=== PATIENT | female | born 1965 | race Caucasian/White ===

== ENCOUNTER → 2018-06-13 | Outpatient (CLI) | payer BC ==
--- NOTE | 2018-06-17 09:10 | MM ---
Reason for exam: screening (asymptomatic). Last mammogram was performed 4 years and 6 months ago. History: Patient is postmenopausal. Physical Findings: A clinical breast exam by your physician is recommended on an annual basis and results should be correlated with mammographic findings. MG 3D Screening Mammo W/Cad Bilateral CC and MLO view(s) were taken. Prior study comparison: December 02, 2013, bilateral digital screening mammo w/CAD. July 20, 2011, bilateral digital screening mammo w/CAD. There are scattered fibroglandular densities. There is chronic nodularity in the left breast. No significant changes when compared with prior studies. ASSESSMENT: Negative, BI-RAD 1 RECOMMENDATION: Routine screening mammogram of both breasts in 1 year.
== END ==
LOC: RADMAMWWP 10:49
PROVIDERS: ATTEND Family Medicine
DX: Z12.31 Encounter for screening mammogram for malignant neoplasm of breast (principal)
CPT/HCPCS: 77063; 77067

== ENCOUNTER → 2021-06-26 | Outpatient (CLI) | payer BC ==
--- NOTE | 2021-06-26 13:57 | MM ---
Reason for exam: screening (asymptomatic). Last mammogram was performed 3 years ago. History: Patient is postmenopausal. Physical Findings: A clinical breast exam by your physician is recommended on an annual basis and results should be correlated with mammographic findings. MG 3D Screening Mammo W/Cad Bilateral CC and MLO view(s) were taken. Prior study comparison: June 13, 2018, bilateral MG 3d screening mammo w/cad. December 02, 2013, bilateral digital screening mammo w/CAD. There are scattered fibroglandular densities. There are benign appearing round calcifications bilaterally. There is a tiny chronic nodularity in the left breast. There is no discrete abnormality. ASSESSMENT: Benign, BI-RAD 2 RECOMMENDATION: Routine screening mammogram of both breasts in 1 year.
== END | disposition home or self-care (01) ==
LOC: RADMAMWWP 07:27
PROVIDERS: ATTEND Family Medicine
DX: Z12.31 Encounter for screening mammogram for malignant neoplasm of breast (principal); Z78.0 Asymptomatic menopausal state
CPT/HCPCS: 77063; 77067

== ENCOUNTER 2021-10-20 12:25 | Observation (INO) | payer BC ==
[2021-10-20] MEDS ORDERED: SODIUM CHLORIDE 0.9% 1,000 ML IV ONE ×2 (13:37→23:24)
[2021-10-20 14:27] LABS: Basophils % (A) 0 %; Eosinophils % (A) 0 %; HCT 40.9 % (34.0-46.0); Lymphocytes % (A) 10 %; MCH 28.2 pg (25.0-35.0); MCHC 31.8 g/dL (31.0-37.0); MCV 88.6 fL (80.0-100.0); Monocytes # (A) 0.5 k/uL (0-1.0); Monocytes % (A) 6 %; Neutrophils # (A) 8.1 k/uL (1.3-7.7); Neutrophils % (A) 83 %; Platelet Count 332 k/uL (150-450); RBC 4.62 m/uL (3.80-5.40); RDW 12.7 % (11.5-15.5); WBC 9.7 k/uL (3.8-10.6)
--- NOTE | 2021-10-20 14:31 | CT ---
EXAMINATION TYPE: CT abdomen pelvis w con DATE OF EXAM: 10/20/2021 COMPARISON: 10/22/2013 HISTORY: Mid abdominal pain, nausea and chills. CT DLP: 989.2 mGycm CONTRAST: CT scan of the abdomen and pelvis is performed without Oral Contrast and with IV Contrast, patient in jected with 100 mL of Isovue 300. FINDINGS: LUNG BASES-: No visible nodule. No infiltrate. LIVER/GB: Cholelithiasis. No space occupying hepatic lesion. Biliary tree is of normal caliber. PANCREAS: No inflammation. No distinct mass. SPLEEN: No splenic enlargement. No lesion seen. ADRENALS: No nodule. No thickening. KIDNEYS/BLADDER: No hydronephrosis. No nephrolithiasis. No distinct renal mass. Urinary bladder g rossly unremarkable. BOWEL: Normal appendix. Normal bowel caliber. No inflammation. GENITAL ORGANS: No gross abnormality. LYMPH NODES: No greater than 1cm abdominal or pelvic lymph nodes are appreciated. AORTA: No significant abnormality. OSSEOUS STRUCTURES: No significant abnormality is seen. OTHER: No significant additional abnormality is seen. IMPRESSION: 1. Cholelithiasis with a gallstone within the gallbladder neck. No definite wall thickening or perich olecystic fluid at this time.
[2021-10-20 14:44] LABS: ALT 87 U/L (4-34); AST 279 U/L (14-36); African American GFR (CKD) >90 (>60 ml/min/1.73 sqM); Albumin 4.2 g/dL (3.5-5.0); Alkaline Phosphatase 92 U/L (38-126); Anion Gap 6 mmol/L; Blood Urea Nitrogen 16 mg/dL (7-17); Calcium 9.6 mg/dL (8.4-10.2); Carbon Dioxide 31 mmol/L (22-30); Chloride 101 mmol/L (98-107); Glucose 131 mg/dL (74-99); Lipase 139 U/L (23-300); Non-African American GFR(CKD) 82 (>60 ml/min/1.73 sqM); Potassium 4.5 mmol/L (3.5-5.1); Sodium 138 mmol/L (137-145); Total Bilirubin 0.6 mg/dL (0.2-1.3); Total Protein 7.2 g/dL (6.3-8.2)
[2021-10-20 14:53] LABS: Appearance,Urine Slightly Cloudy (Clear); Color,Urine Yellow; Specific Gravity,Urine 1.015 (1.001-1.035)
[2021-10-20 14:54] LABS: Bilirubin,Urine Negative (Negative); Blood,Urine Negative (Negative); Glucose,Urine (UA) Negative (Negative); Ketones,Urine Negative (Negative); Leukocyte Esterase,Urine Moderate (Negative); Nitrite,Urine Negative (Negative); PH, Urine 7.5 (5.0-8.0); Protein,Urine Trace (Negative); Urobilinogen,Urine <2.0 mg/dL (<2.0)
[2021-10-20 14:56] LABS: Bacteria,Urine Occasional /hpf; Squamous Epithelial Cell,Urine 6 /hpf (0-4); WBC,Urine 2 /hpf (0-5)
--- NOTE | 2021-10-20 15:11 | ED ---
Abdominal Pain HPI - General Chief Complaint: Abdominal Pain Stated Complaint: Abdominal Pain,Chills, Time Seen by Provider: 10/20/21 12:35 Source: patient Mode of arrival: ambulatory Limitations: no limitations - History of Present Illness Initial Comments: 56-year-old female with no reported past medical history presents emergency department with right lower quadrant abdominal pain. 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 States the pain was cramping and severe but then resolved shortly afterwards. She had associated nausea without vomiting. Also admits to chills. She was able to walk around for a bed and then the pain returned. She was concerned for appendicitis. Patient's has not had any abdominal surgeries. Denies any changes in her urination to include dysuria, hematuria or difficulty voiding. Denies changes in her bowel habits to include diarrhea, constipation, melenic stools or hematochezia. No issues with vaginal bleeding or discharge. No other alleviating, precipitating modifying factors - Related Data Home Medications Medication Instructions Recorded Confirmed Calcium Carbonate/Vitamin D3 1 tab PO DAILY 10/20/21 10/20/21 [Calcium 500 mg-Vit D3 5 mcg (200 Unit)] Cholecalciferol [Vitamin D3 (125 125 mcg PO DAILY 10/20/21 10/20/21 Mcg = 5000 Iu)] amLODIPine BES/OLMESARTAN MED 1 tab PO DAILY 10/20/21 10/20/21 [amLODIPine BES/OLMESARTAN MED 5-20 mg] Previous Rx's Medication Instructions Recorded Acetaminophen Tab [Tylenol] 650 mg PO Q6HR PRN tab 10/21/21 Allergies Allergy/AdvReac Type Severity Reaction Status Date / Time naproxen AdvReac Rash/Hives Verified 10/20/21 15:35 Review of Systems ROS Statement: Those systems with pertinent positive or pertinent negative responses have been documented in the HPI. ROS Other: All systems not noted in ROS Statement are negative. Past Medical History Past Medical History: No Reported History History of Any Multi-Drug Resistant Organisms: None Reported Past Surgical History: Orthopedic Surgery Past Psychological History: No Psychological Hx Reported Smoking Status: Never smoker Past Alcohol Use History: None Reported Past Drug Use History: None Reported - Past Family History Mother Family Medical History: No Reported History General Exam Limitations: no limitations General appearance: alert, in no apparent distress Head exam: Present: atraumatic, normocephalic, normal inspection Eye exam: Present: normal appearance, PERRL, EOMI. Absent: scleral icterus, conjunctival injection, periorbital swelling ENT exam: Present: normal exam, mucous membranes moist Neck exam: Present: normal inspection. Absent: tenderness, meningismus, lymphadenopathy Respiratory exam: Present: normal lung sounds bilaterally. Absent: respiratory distress, wheezes, rales, rhonchi, stridor Cardiovascular Exam: Present: regular rate, normal rhythm, normal heart sounds. Absent: systolic murmur, diastolic murmur, rubs, gallop, clicks GI/Abdominal exam: Present: soft, tenderness (right upper and right lower quadrants), normal bowel sounds. Absent: distended, guarding, rebound, rigid Extremities exam: Present: normal inspection, full ROM, normal capillary refill. Absent: tenderness, pedal edema, joint swelling, calf tenderness Back exam: Present: normal inspection Neurological exam: Present: alert, oriented X3, CN II-XII intact Psychiatric exam: Present: normal affect, normal mood Skin exam: Present: warm, dry, intact, normal color. Absent: rash Course Vital Signs 10/20/21 10/20/21 12:32 15:24 Temperature 97.7 F Pulse Rate 86 83 Respiratory 18 20 Rate Blood Pressure 154/86 170/98 O2 Sat by Pulse 98 98 Oximetry Medical Decision Making - Medical Decision Making Upon arrival patient was placed into room 27. A thorough history and physical exam was performed. Patient was offered pain and nausea medications however refused. IV access established laboratory studies were conducted. Patient does have an elevated AST and ALTs. He the abdomen and pelvis was performed because of patient's abdominal pain and demonstrates acute cholelithiasis with a gallstone within the neck of the gallbladder. No definite wall thickening or pericholecystic fluid. Normal appendix. Results are discussed patient. Discussed results with Dr. Luciano. Recommended admission with antibiotics, pain medication and nausea medication. Patient admitted to the floor in stable condition - Lab Data Result diagrams: 10/21/21 07:17 10/21/21 07:17 Lab Results 10/20/21 10/20/21 10/20/21 Range/Units 13:14 13:56 13:56 WBC 9.7 (3.8-10.6) k/uL RBC 4.62 (3.80-5.40) m/uL Hgb 13.0 (11.4-16.0) gm/dL Hct 40.9 (34.0-46.0) % MCV 88.6 (80.0-100.0) fL MCH 28.2 (25.0-35.0) pg MCHC 31.8 (31.0-37.0) g/dL RDW 12.7 (11.5-15.5) % Plt Count 332 (150-450) k/uL MPV 7.0 Neutrophils % 83 % Lymphocytes % 10 % Monocytes % 6 % Eosinophils % 0 % Basophils % 0 % Neutrophils # 8.1 H (1.3-7.7) k/uL Lymphocytes # 1.0 (1.0-4.8) k/uL Monocytes # 0.5 (0-1.0) k/uL Eosinophils # 0.0 (0-0.7) k/uL Basophils # 0.0 (0-0.2) k/uL Sodium 138 (137-145) mmol/L Potassium 4.5 (3.5-5.1) mmol/L Chloride 101 (98-107) mmol/L Carbon Dioxide 31 H (22-30) mmol/L Anion Gap 6 mmol/L BUN 16 (7-17) mg/dL Creatinine 0.80 (0.52-1.04) mg/dL Est GFR (CKD-EPI)AfAm >90 (>60 ml/min/1.73 sqM) Est GFR (CKD-EPI)NonAf 82 (>60 ml/min/1.73 sqM) Glucose 131 H (74-99) mg/dL Plasma Lactic Acid Vinod (0.7-2.0) mmol/L Calcium 9.6 (8.4-10.2) mg/dL Total Bilirubin 0.6 (0.2-1.3) mg/dL AST 279 H (14-36) U/L ALT 87 H (4-34) U/L Alkaline Phosphatase 92 (38-126) U/L Total Protein 7.2 (6.3-8.2) g/dL Albumin 4.2 (3.5-5.0) g/dL Lipase 139 (23-300) U/L Urine Color Yellow Urine Appearance Slightly Cloudy H (Clear) Urine pH 7.5 (5.0-8.0) Ur Specific [place] 1.015 (1.001-1.035) Urine Protein Trace (Negative) Urine Glucose (UA) Negative (Negative) Urine Ketones Negative (Negative) Urine Blood Negative (Negative) Urine Nitrite Negative (Negative) Urine Bilirubin Negative (Negative) Urine Urobilinogen <2.0 (<2.0) mg/dL Ur Leukocyte Esterase Moderate (Negative) Urine WBC 2 (0-5) /hpf Ur Squamous Epith Cells 6 H (0-4) /hpf Urine Bacteria Occasional H (None) /hpf 10/20/21 Range/Units 13:56 WBC (3.8-10.6) k/uL RBC (3.80-5.40) m/uL Hgb (11.4-16.0) gm/dL Hct (34.0-46.0) % MCV (80.0-100.0) fL MCH (25.0-35.0) pg MCHC (31.0-37.0) g/dL RDW (11.5-15.5) % Plt Count (150-450) k/uL MPV Neutrophils % % Lymphocytes % % Monocytes % % Eosinophils % % Basophils % % Neutrophils # (1.3-7.7) k/uL Lymphocytes # (1.0-4.8) k/uL Monocytes # (0-1.0) k/uL Eosinophils # (0-0.7) k/uL Basophils # (0-0.2) k/uL Sodium (137-145) mmol/L Potassium (3.5-5.1) mmol/L Chloride (98-107) mmol/L Carbon Dioxide (22-30) mmol/L Anion Gap mmol/L BUN (7-17) mg/dL Creatinine (0.52-1.04) mg/dL Est GFR (CKD-EPI)AfAm (>60 ml/min/1.73 sqM) Est GFR (CKD-EPI)NonAf (>60 ml/min/1.73 sqM) Glucose (74-99) mg/dL Plasma Lactic Acid Vinod 1.3 (0.7-2.0) mmol/L Calcium (8.4-10.2) mg/dL Total Bilirubin (0.2-1.3) mg/dL AST (14-36) U/L ALT (4-34) U/L Alkaline Phosphatase (38-126) U/L Total Protein (6.3-8.2) g/dL Albumin (3.5-5.0) g/dL Lipase (23-300) U/L Urine Color Urine Appearance (Clear) Urine pH (5.0-8.0) Ur Specific [place] (1.001-1.035) Urine Protein (Negative) Urine Glucose (UA) (Negative) Urine Ketones (Negative) Urine Blood (Negative) Urine Nitrite (Negative) Urine Bilirubin (Negative) Urine Urobilinogen (<2.0) mg/dL Ur Leukocyte Esterase (Negative) Urine WBC (0-5) /hpf Ur Squamous Epith Cells (0-4) /hpf Urine Bacteria (None) /hpf Disposition Clinical Impression: Cholelithiasis, Elevated liver enzymes, Nausea Disposition: ADMITTED IP TO THIS [facility] Condition: Stable Is patient prescribed a controlled substance at d/c from ED?: No Decision to Admit Reason: Admit from EC Decision Date: 10/20/21 Decision Time: 15:13
[2021-10-20] MEDS ORDERED: ONDANSETRON 4 MG/2 ML VIAL IVP STA (15:12)
[2021-10-20] MEDS ORDERED: MORPHINE SULFATE 4 MG/ML SYRINGE IVP STA (15:12)
[2021-10-20] MEDS ORDERED: MORPHINE SULFATE 4 MG/ML SYRINGE IV PRN (15:14)
[2021-10-20] MEDS ORDERED: NALOXONE 0.4 MG/ML 1 ML VIAL IV PRN (15:14)
[2021-10-20] MEDS: SODIUM CHLORIDE 0.9% 1,000 ML IV SCH (17:18)
[2021-10-20] MEDS: PANTOPRAZOLE 40 MG/10 ML VIAL IV SCH (17:19)
[2021-10-20] MEDS ORDERED: LACTATED RINGERS 1,000 ML IV ONE (20:29)
[2021-10-20] MEDS ORDERED: HEPARIN SODIUM,PORCINE 5,000 UNIT/ML 1 ML VIAL SQ ONE (21:19)
--- NOTE | 2021-10-20 21:20 | P.GSHP ---
History of Present Illness H&P Date: 10/20/21 Chief Complaint: Right upper quadrant pain Is a 56-year-old female who presents to the emergency room with right quadrant pain. Patient worked up found have gallstones. Patient has a gallstone in the neck of her gallbladder. Past Medical History Past Medical History: No Reported History History of Any Multi-Drug Resistant Organisms: None Reported Past Surgical History: Orthopedic Surgery Additional Past Surgical History / Comment(s): knee Past Anesthesia/Blood Transfusion Reactions: No Reported Reaction Past Psychological History: No Psychological Hx Reported Smoking Status: Never smoker Past Alcohol Use History: None Reported Past Drug Use History: None Reported - Past Family History Mother Family Medical History: No Reported History Medications and Allergies Home Medications Medication Instructions Recorded Confirmed Type Calcium Carbonate/Vitamin D3 1 tab PO DAILY 10/20/21 10/20/21 History [Calcium 500 mg-Vit D3 5 mcg (200 Unit)] Cholecalciferol [Vitamin D3 (125 125 mcg PO DAILY 10/20/21 10/20/21 History Mcg = 5000 Iu)] amLODIPine BES/OLMESARTAN MED 1 tab PO DAILY 10/20/21 10/20/21 History [amLODIPine BES/OLMESARTAN MED 5-20 mg] Allergies Allergy/AdvReac Type Severity Reaction Status Date / Time naproxen AdvReac Rash/Hives Verified 10/20/21 15:35 Surgical - Exam Vital Signs Temp Pulse Resp BP Pulse Ox 97.7 F 86 18 154/86 98 10/20/21 12:32 10/20/21 12:32 10/20/21 12:32 10/20/21 12:32 10/20/21 12:32 - General well developed, well nourished, no distress - Eyes PERRL - ENT normal pinna - Neck no masses - Respiratory normal expansion - Cardiovascular Rhythm: regular - Abdomen Abdomen: soft, non tender Results - Labs 10/20/21 13:56 10/20/21 13:56 Abnormal Lab Results - Last 24 Hours (Table) 10/20/21 10/20/21 10/20/21 Range/Units 13:14 13:56 13:56 Neutrophils # 8.1 H (1.3-7.7) k/uL Carbon Dioxide 31 H (22-30) mmol/L Glucose 131 H (74-99) mg/dL AST 279 H (14-36) U/L ALT 87 H (4-34) U/L Urine Appearance Slightly Cloudy H (Clear) Ur Squamous Epith Cells 6 H (0-4) /hpf Urine Bacteria Occasional H (None) /hpf Diabetes panel 10/20/21 Range/Units 13:56 Sodium 138 (137-145) mmol/L Potassium 4.5 (3.5-5.1) mmol/L Chloride 101 (98-107) mmol/L Carbon Dioxide 31 H (22-30) mmol/L BUN 16 (7-17) mg/dL Creatinine 0.80 (0.52-1.04) mg/dL Glucose 131 H (74-99) mg/dL Calcium 9.6 (8.4-10.2) mg/dL AST 279 H (14-36) U/L ALT 87 H (4-34) U/L Alkaline Phosphatase 92 (38-126) U/L Total Protein 7.2 (6.3-8.2) g/dL Albumin 4.2 (3.5-5.0) g/dL Calcium panel 10/20/21 Range/Units 13:56 Calcium 9.6 (8.4-10.2) mg/dL Albumin 4.2 (3.5-5.0) g/dL Pituitary panel 10/20/21 Range/Units 13:56 Sodium 138 (137-145) mmol/L Potassium 4.5 (3.5-5.1) mmol/L Chloride 101 (98-107) mmol/L Carbon Dioxide 31 H (22-30) mmol/L BUN 16 (7-17) mg/dL Creatinine 0.80 (0.52-1.04) mg/dL Glucose 131 H (74-99) mg/dL Calcium 9.6 (8.4-10.2) mg/dL Adrenal panel 10/20/21 Range/Units 13:56 Sodium 138 (137-145) mmol/L Potassium 4.5 (3.5-5.1) mmol/L Chloride 101 (98-107) mmol/L Carbon Dioxide 31 H (22-30) mmol/L BUN 16 (7-17) mg/dL Creatinine 0.80 (0.52-1.04) mg/dL Glucose 131 H (74-99) mg/dL Calcium 9.6 (8.4-10.2) mg/dL Total Bilirubin 0.6 (0.2-1.3) mg/dL AST 279 H (14-36) U/L ALT 87 H (4-34) U/L Alkaline Phosphatase 92 (38-126) U/L Total Protein 7.2 (6.3-8.2) g/dL Albumin 4.2 (3.5-5.0) g/dL Assessment and Plan Assessment: Cholecystitis, cholelithiasis. We'll perform laparoscopic cholecystectomy
[2021-10-20] MEDS ORDERED: PROPOFOL 10 MG/ML 20 ML VIAL IV ONE (21:40)
[2021-10-20] MEDS ORDERED: fentaNYL (PF) 50 MCG/ML 2 ML AMP ONE (21:40)
[2021-10-20] MEDS ORDERED: HYDROmorphone (PF) 1 MG/ML ONE (21:40)
[2021-10-20] MEDS ORDERED: KETOROLAC 15 MG/ML 1 ML VIAL ONE (21:40)
[2021-10-20] MEDS ORDERED: GLYCOPYRROLATE 0.2 MG/ML 2 ML VIAL ONE (21:40)
[2021-10-20] MEDS ORDERED: SUCCINYLCHOLINE CHLORIDE 100 MG/5 ML SYR IV ONE (21:40)
[2021-10-20] MEDS ORDERED: NEOSTIGMINE 1 MG/ML 10 ML VIAL ONE (21:40)
[2021-10-20] MEDS ORDERED: LIDOCAINE 1% INJ 10MG/ML (20 ML MDV) ONE (21:40)
[2021-10-20] MEDS ORDERED: ROCURONIUM 10 MG/ML (5 ML VIAL) IV ONE (21:40)
[2021-10-20] MEDS ORDERED: MIDAZOLAM 2 MG/2 ML VIAL ONE (21:40)
[2021-10-20] MEDS ORDERED: SODIUM CHLORIDE 0.9% 100 ML with ceFAZolin 2 GM IV ONE ×2 (21:42)
[2021-10-20] MEDS ORDERED: BUPIVACAINE-EPI 0.5%-1:200,000 10 ML VIAL SQ ONE (21:55)
[2021-10-20] MEDS ORDERED: HYDROcodone/APAP 7.5-325MG 1 EACH TAB PO PRN (22:14)
[2021-10-20] MEDS ORDERED: HYDROmorphone 1 MG/ML 1 ML SYRINGE IVP PRN (22:14)
--- NOTE | 2021-10-20 22:14 | P.OP ---
Date of Procedure: 10/20/21 Preoperative Diagnosis: Cholecystitis Postoperative Diagnosis: Cholecystitis Procedure(s) Performed: Laparoscopic cholecystectomy Anesthesia: YUDY Surgeon: Ronal Luciano Estimated Blood Loss (ml): 5 Pathology: other (Gallbladder) Condition: stable Disposition: PACU Description of Procedure: The patient was placed on the operating table. The patient received a general endotracheal tube anesthesia. The patients abdomen was prepped and draped in the usual sterile fashion. Through an infraumbilical stab incision, the fascia of the anterior abdominal wall was grasped with a pair of Kochers and then the Veress needle was placed in the peritoneal cavity. Position of the Veress needle was confirmed with positive drop test. The abdomen was then insufflated. After adequate insufflation, the 10 mm trocar was placed in the peritoneal cavity. Following this the laparoscope was placed in the peritoneal cavity. The patient was placed in the head-up, right side up position and then a 5 mm trocar was placed in the right lateral and right subcostal position under direct visualization. A 8 mm trocar was placed in the epigastric position. The gallbladder was grasped in the fundus and infundibulum. Traction on the gallbladder was placed in the lateral and the cephalad positions. The triangle of Calot was visualized.. The cystic duct was bluntly dissected until the union of the cystic duct and common bile duct was seen. A critical view of safety was achieved. The cystic duct was then divided and sealed with the Harmonic scissors. A PDS Endoloop was then placed throughout the cystic duct stump. The cystic artery divided and sealed with the Harmonic scissors. The gallbladder was then removed from the liver bed using Harmonic scissors. The gallbladder was then extracted through the epigastric port site. Operative field was checked for any bleeding spots and Harmonic scissors was used to coagulate the liver bed. The abdomen was irrigated. The trocars were removed. The skin was closed using interrupted 3-0 Vicryl suture. Dermabond dressing were applied. The patient tolerated the procedure well.
[2021-10-20] MEDS ORDERED: HYDROmorphone 0.5 MG/0.5 ML SYRINGE IVP ONE (23:15)
[2021-10-20] MEDS: ONDANSETRON 4 MG/2 ML VIAL IVP PRN (23:47)
[2021-10-21] MEDS: SODIUM CHLORIDE 0.9% 1,000 ML IV SCH ×4 (00:10→23:26)
[2021-10-21] MEDS: ACETAMINOPHEN TAB 325 MG TAB PO PRN (05:14)
[2021-10-21] MEDS: PANTOPRAZOLE 40 MG/10 ML VIAL IV SCH (07:48)
[2021-10-21] MEDS: ONDANSETRON 4 MG/2 ML VIAL IVP PRN (07:48)
[2021-10-21] MEDS: ENOXAPARIN 40 MG/0.4 ML SYRINGE SQ SCH (07:48)
--- NOTE | 2021-10-21 11:20 | P.PN ---
Progress Note - Text Progress Note Date: 10/21/21 Patient is 12 hours postoperative laparoscopically cystectomy. She still has complaints of incisional pain. She does not feel ready to go home. On exam vital signs are stable. Abdomen soft. Status post laparoscopically cholecystectomy for acute closure status. Patient will continue receive supportive care. His be discharged home tomorrow.
--- NOTE | 2021-10-21 11:31 | P.CONS ---
History of Present Illness - Reason for Consult Consult date: 10/21/21 - Chief Complaint Medical management - History of Present Illness 56-year-old woman with obesity class I, hypertension presented for nausea, vomiting, abdominal pain. Patient was found to have cholelithiasis and was taken to the operating room last night by surgery. Surgery consulted medicine f or medical management. Patient's has stable chronic medical conditions. Patient has no complaints at this time. Patient does report an appetite, would like to try diet. Patient has been passing gas. She denies fevers, chills, chest pain, palpitations, cough, dyspnea, syncope, presyncope, constipation, diarrhea, dysuria, melena, hematochezia, numbness/weakness of extremities. She did report an episode of emesis this morning, but did not feel nauseous the time of my exam. Patient is afebrile, 123/77, heart rate 68, 96% on room air. CBC from admission is unremarkable. Chemistries from admission show alkalosis with bicarbonate 31, otherwise has elevated liver enzymes of 279, 87 of AST, ALT respectively. Lipase is 139. UA was dirty. HCG was negative. Her computed tomography scan of her abdomen/pelvis as noted in demonstrate cholelithiasis with a gallstone within the gallbladder neck, and without definite wall thickening. All Systems reviewed and pertinent positives and negatives noted in HPI, all other symptoms are negative Gen: awake, alert HEENT: normocephalic, atraumatic, good hearing acuity, moist mucous membranes Resp: good air exchange, breathing comfortably with no accessory muscle use CVS: good distal perfusion x 4, GI: soft, NTTP, ND : no SPT, no CVAT, lisa catheter not present MSK: no pitting edema, no clubbing Neuro: non-focal, moving all extremities Psych: cooperative, euthymic mood Labs and imaging were reviewed as above Assessment/plan: Hypertension -Okay to resume her home blood pressure medication Cholelithiasis -Management per primary team Patient is a full code Thank you for this consult. A member of her team is available 11/03, please reach out to us via perfect serve or any questions or concerns arise. Medically, patient is stable for discharge, medication reconciliation will be addressed. Past Medical History Past Medical History: No Reported History History of Any Multi-Drug Resistant Organisms: None Reported Past Surgical History: Orthopedic Surgery Additional Past Surgical History / Comment(s): knee Past Anesthesia/Blood Transfusion Reactions: No Reported Reaction Past Psychological History: No Psychological Hx Reported Smoking Status: Never smoker Past Alcohol Use History: None Reported Past Drug Use History: None Reported - Past Family History Mother Family Medical History: No Reported History Medications and Allergies Home Medications Medication Instructions Recorded Confirmed Type Calcium Carbonate/Vitamin D3 1 tab PO DAILY 10/20/21 10/20/21 History [Calcium 500 mg-Vit D3 5 mcg (200 Unit)] Cholecalciferol [Vitamin D3 (125 125 mcg PO DAILY 10/20/21 10/20/21 History Mcg = 5000 Iu)] amLODIPine BES/OLMESARTAN MED 1 tab PO DAILY 10/20/21 10/20/21 History [amLODIPine BES/OLMESARTAN MED 5-20 mg] Acetaminophen Tab [Tylenol] 650 mg PO Q6HR PRN tab 10/21/21 Rx Allergies Allergy/AdvReac Type Severity Reaction Status Date / Time naproxen AdvReac Rash/Hives Verified 10/20/21 15:35 Physical Exam Osteopathic Statement: *. No significant issues noted on an osteopathic structural exam other than those noted in the History and Physical/Consult. Vitals: Vital Signs Temp Pulse Pulse Pulse Pulse Resp BP 10/21/21 07:00 97.2 F L 68 17 10/21/21 01:56 69 16 10/21/21 01:40 97.5 F L 60 15 10/20/21 23:43 97.9 F 89 14 10/20/21 23:15 69 16 10/20/21 23:00 64 16 10/20/21 22:46 65 16 10/20/21 22:26 96.9 F L 85 12 10/20/21 19:03 98.4 F 68 18 10/20/21 16:16 98.4 F 68 18 10/20/21 15:24 83 20 170/98 10/20/21 12:32 97.7 F 86 18 154/86 BP BP Pulse Ox 10/21/21 07:00 123/77 96 10/21/21 01:56 10/21/21 01:40 118/69 99 10/20/21 23:43 150/87 94 L 10/20/21 23:15 151/74 99 10/20/21 23:00 155/72 99 10/20/21 22:46 133/68 100 10/20/21 22:26 140/72 98 10/20/21 19:03 157/83 98 10/20/21 16:16 157/83 98 10/20/21 15:24 98 10/20/21 12:32 98 Intake and Output 10/20/21 10/21/21 10/21/21 22:59 06:59 14:59 Intake Total 800 100 Output Total 10 Balance 790 100 Intake: IV 800 100 Output: Estimated Blood Loss 10 Other: Voiding Method Toilet # Voids 2 Weight 77.111 kg Results CBC & Chem 7: 10/20/21 13:56 10/20/21 13:56 Labs: Abnormal Lab Results - Last 24 Hours (Table) 10/20/21 10/20/21 10/20/21 Range/Units 13:14 13:56 13:56 Neutrophils # 8.1 H (1.3-7.7) k/uL Carbon Dioxide 31 H (22-30) mmol/L Glucose 131 H (74-99) mg/dL AST 279 H (14-36) U/L ALT 87 H (4-34) U/L Urine Appearance Slightly Cloudy H (Clear) Ur Squamous Epith Cells 6 H (0-4) /hpf Urine Bacteria Occasional H (None) /hpf
[2021-10-21 11:53] LABS: African American GFR (CKD) 94.9 (60.0-200.0); Albumin/Globulin Ratio 1.9 (1.60-3.17); Anion Gap 10.6 mmol/L (10.00-18.00); BUN/Creat Ratio 13.75 Ratio (12.00-20.00); Calcium 8.8 mg/dL (8.7-10.3); Carbon Dioxide 24.4 mmol/L (20.0-27.5); Globulin 2.1 g/dL (1.6-3.3); Non-African American GFR(CKD) 81.8 (60.0-200.0); Potassium 4.7 mmol/L (3.5-5.5); Total Bilirubin 0.4 mg/dL (0.30-1.20); Total Protein 6.1 g/dL (6.2-8.2)
[2021-10-21 11:57] LABS: Basophils # (A) 0.06 X 10*3/uL (0.00-0.10); Basophils % (A) 0.7 %; Eosinophils # (A) 0.01 X 10*3/uL (0.04-0.35); Eosinophils % (A) 0.1 %; HCT 36.8 % (37.2-46.3); Immature Grans, Automated 0.4 %; Lymphocytes # (A) 1.33 X 10*3/uL (0.90-5.00); Lymphocytes % (A) 16.1 %; MCH 27.2 pg (27.0-32.0); MCHC 29.9 g/dL (32.0-37.0); MCV 91.1 fL (80.0-97.0); Mean Platelet Volume 9.9 fL (9.5-12.2); Monocytes # (A) 0.63 X 10*3/uL (0.20-1.00); Monocytes % (A) 7.6 %; NRBC Per 100 WBC 0 /100 WBCS (0.0-0.0); Neutrophils # (A) 6.21 X 10*3/uL (1.80-7.70); Neutrophils % (A) 75.1 %; Platelet Count 322 X 10*3/uL (140-440); RBC 4.04 X 10*6/uL (4.10-5.20); RDW 13.2 % (11.5-14.5); WBC 8.27 X 10*3/uL (4.50-10.00)
[2021-10-21] MEDS: METOCLOPRAMIDE 5 MG/ML 2 ML VIAL IVP SCH ×2 (12:05→17:44)
[2021-10-22] MEDS: METOCLOPRAMIDE 5 MG/ML 2 ML VIAL IVP SCH ×2 (00:20→05:19)
[2021-10-22] MEDS: ACETAMINOPHEN TAB 325 MG TAB PO PRN (00:23)
[2021-10-22 07:35] VITALS: BP 145/89; PULSE 77; RESP 16; TEMP 98.3
[2021-10-22] MEDS: SODIUM CHLORIDE 0.9% 1,000 ML IV SCH (08:21)
[2021-10-22] MEDS: PANTOPRAZOLE 40 MG/10 ML VIAL IV SCH (08:21)
[2021-10-22] MEDS: ENOXAPARIN 40 MG/0.4 ML SYRINGE SQ SCH (08:21)
[2021-10-22] MEDS ORDERED: CALCIUM CARB-VIT D 500 MG-5 MCG TAB PO SCH (09:00)
[2021-10-22] MEDS ORDERED: LOSARTAN 50 MG TAB PO SCH (09:00)
[2021-10-22] MEDS ORDERED: CHOLECALCIFEROL 125 MCG (5000 IU) TABLET PO SCH (09:00)
[2021-10-22] MEDS ORDERED: amLODIPine 5 MG TAB PO SCH (09:00)
--- NOTE | 2021-10-22 11:34 | P.PN ---
Progress Note - Text Progress Note Date: 10/22/21 Patient feels much better this morning. On exam vital signs are stable. Abdomen soft. Incisions clean dry tach. Status post laparoscopic cholecystectomy. Patiently discharged home today.
--- NOTE | 2021-10-22 12:51 | P.PN ---
Subjective Progress Note Date: 10/22/21 Pt doing well today, no further complaints. Gen: awake, alert HEENT: normocephalic, atraumatic, good hearing acuity, moist mucous membranes Resp: good air exchange, breathing comfortably with no accessory muscle use CVS: good distal perfusion x 4, GI: soft, NTTP, ND : no SPT, no CVAT, lisa catheter not present MSK: no pitting edema, no clubbing Neuro: non-focal, moving all extremities Psych: cooperative, euthymic mood Assessment/plan: Hypertension -Okay to resume her home blood pressure medication Cholelithiasis -Management per primary team Patient is a full code Thank you for this consult. A member of her team is available 11/03, please reach out to us via perfect serve or any questions or concerns arise. Medically, patient is stable for discharge, medication reconciliation will be addressed. Objective - Vital Signs Vital signs: Vital Signs Temp 98.3 F 10/22/21 07:00 Pulse 77 10/22/21 07:00 Resp 16 10/22/21 07:00 BP 145/89 10/22/21 07:00 Pulse Ox 93 L 10/22/21 07:00 Intake & Output 10/21/21 10/22/21 10/22/21 18:59 06:59 18:59 Intake Total 118 Balance 118 Intake: Oral 118 Other: Voiding Method Toilet Toilet # Voids 3 2 # Bowel Movements 0 0 - Labs CBC & Chem 7: 10/21/21 07:17 10/21/21 07:17
== END 2021-10-22 13:20 | disposition home or self-care (01) ==
LOC: EC 12:25 → 6NMEDSUR 15:14
PROVIDERS: ADMIT Surgery; ATTEND Surgery
DX: K80.10 Calculus of gallbladder with chronic cholecystitis without obstruction (principal); I10 Essential (primary) hypertension; E66.9 Obesity, unspecified; Z68.33 Body mass index [BMI] 33.0-33.9, adult; Z79.899 Other long term (current) drug therapy; Z88.6 Allergy status to analgesic agent; Z98.890 Other specified postprocedural states
CPT/HCPCS: 96372; 96375 ×2; 96361; 96374; 99285; 36415; 88304; 80053 ×2; 83605; 83690; 85025 ×2; 81001; 81025; 74177; 47562; G0378 ×3; J2250; J2270; J1644; J2710; J2765 ×2; J0690; J2405 ×2; J2001; J1650; J3010; J1170 ×2; J1885; J0330; J2704; C9113 ×2; Q9967

== ENCOUNTER 2023-01-18 01:52 | Emergency (ER) | payer BC ==
[2023-01-18 02:02] VITALS: PULSE 81; RESP 18; TEMP 98
[2023-01-18] MEDS ORDERED: amLODIPine 5 MG TAB PO STA (02:13)
[2023-01-18 02:37] VITALS: BP 182/98
--- NOTE | 2023-01-18 02:37 | ED ---
Extremity Problem HPI - General Chief complaint: Extremity Problem,Nontraumatic Stated complaint: L leg pain Time Seen by Provider: 01/18/23 02:07 Source: patient Mode of arrival: ambulatory Limitations: no limitations - History of Present Illness Initial comments: 57-year-old female presenting with chief complaint of bilateral lower extremity swelling. Patient states that this has been ongoing for several weeks. She notes being out of her blood pressure medications for the last 1-2 weeks. She was seen at walk-in clinic earlier today and provided with a prescription for outpatient Doppler ultrasound. She denies any chest pain, difficulty breathing, fever, chills, nausea, vomiting, palpitations, weakness, numbness, tingling, dizziness, recent surgery, recent travel, hormone use, history of blood clots. - Related Data Home Medications Medication Instructions Recorded Confirmed Calcium Carbonate/Vitamin D3 1 tab PO DAILY 10/20/21 10/20/21 [Calcium 500 mg-Vit D3 5 mcg (200 Unit)] Cholecalciferol [Vitamin D3 (125 125 mcg PO DAILY 10/20/21 10/20/21 Mcg = 5000 Iu)] amLODIPine BES/OLMESARTAN MED 1 tab PO DAILY 10/20/21 10/20/21 [amLODIPine BES/OLMESARTAN MED 5-20 mg] Previous Rx's Medication Instructions Recorded Acetaminophen Tab [Tylenol] 650 mg PO Q6HR PRN tab 10/21/21 amLODIPine BES/OLMESARTAN MED 1 tab PO DAILY #30 tab 01/18/23 [amLODIPine BES/OLMESARTAN MED 5-20 mg] Allergies Allergy/AdvReac Type Severity Reaction Status Date / Time naproxen AdvReac Rash/Hives Verified 10/20/21 15:35 Review of Systems ROS Statement: Those systems with pertinent positive or pertinent negative responses have been documented in the HPI. ROS Other: All systems not noted in ROS Statement are negative. Past Medical History Past Medical History: Hypertension History of Any Multi-Drug Resistant Organisms: None Reported Past Surgical History: Cholecystectomy, Orthopedic Surgery Additional Past Surgical History / Comment(s): knee Past Anesthesia/Blood Transfusion Reactions: No Reported Reaction Past Psychological History: No Psychological Hx Reported Smoking Status: Never smoker Past Alcohol Use History: None Reported Past Drug Use History: None Reported - Past Family History Mother Family Medical History: No Reported History General Exam Limitations: no limitations General appearance: alert, in no apparent distress Head exam: Present: atraumatic, normocephalic, normal inspection Eye exam: Present: normal appearance, EOMI. Absent: scleral icterus, periorbital swelling Neck exam: Present: normal inspection, full ROM Respiratory exam: Present: normal lung sounds bilaterally. Absent: respiratory distress, wheezes, rales, rhonchi, stridor Cardiovascular Exam: Present: regular rate, normal rhythm, normal heart sounds. Absent: systolic murmur, diastolic murmur, rubs, gallop, clicks Extremities exam: Present: pedal edema Neurological exam: Present: alert, oriented X3, CN II-XII intact Psychiatric exam: Present: normal affect, normal mood Skin exam: Present: warm, dry, intact, normal color. Absent: rash Course Vital Signs 01/18/23 01/18/23 01:59 02:37 Temperature 98 F Pulse Rate 81 Respiratory 18 Rate Blood Pressure 195/113 182/98 O2 Sat by Pulse 98 Oximetry Medical Decision Making - Medical Decision Making Was pt. sent in by a medical professional or institution (SHAKIRA Ye, RETAIL MANAGER IN TRA[employer]ING, urgent care, hospital, or [facility]...) When possible be specific @ -No Did you speak to anyone other than the patient for history (EMS, parent, family, police, friend...)? What history was obtained from this source @ -No Did you review nursing and triage notes (agree or disagree)? Why? @ -I reviewed and agree with nursing and triage notes Were old charts reviewed (outside hosp., previous admission, EMS record, old EKG, old radiological studies, urgent care reports/EKG's, [facility] records)? Report findings @ -No old charts were reviewed Differential Diagnosis (chest pain, altered mental status, abdominal pain women, abdominal pain men, vaginal bleeding, weakness, fever, dyspnea, syncope, headache, dizziness, GI bleed, back pain, seizure, CVA, palpatations, mental health, musculoskeletal)? @ -Differential includes gravity dependent edema, hypertension, DVT, CHF, this is not an all inclusive list EKG interpreted by me (3pts min.). @ -As above X-rays interpreted by me (1pt min.). @ -None done CT interpreted by me (1pt min.). @ -None done U/S interpreted by me (1pt. min.). @ -None done What testing was considered but not performed or refused? (CT, X-rays, U/S, labs)? Why? @ -None What meds were considered but not given or refused? Why? @ -None Did you discuss the management of the patient with other professionals (professionals i.e. , PA, RETAIL MANAGER [employer] TRA[employer]ING, lab, RT, psych nurse, public health social worker, cemetery workers supervisor, teacher, community service patrol officer, wrapper caser)? Give summary @ -No Was smoking cessation discussed for >3mins.? @ -No Was critical care preformed (if so, how long)? @ -No Were there social determinants of health that impacted care today? How? (Homelessness, low income, unemployed, alcoholism, drug addiction, transportation, low edu. Level, literacy, decrease access to med. care, fpc, rehab)? @ -No Was there de-escalation of care discussed even if they declined (Discuss DNR or withdrawal of care, Hospice)? DNR status @ -No What co-morbidities impacted this encounter? (DM, HTN, Smoking, COPD, CAD, Cancer, CVA, ARF, Chemo, Hep., AIDS, mental health diagnosis, sleep apnea, m orbid obesity)? @ -None Was patient admitted / discharged? Hospital course, mention meds given and route, prescriptions, significant lab abnormalities, going to OR and other pertinent info. @ -57-year-old female presenting with chief complaint of bilateral lower extremity edema which has been ongoing for several weeks. Patient notes that s he has been out of her hypertension medication for one to 2 weeks. No chest pain or difficulty breathing. Vital signs are stable. No high risk features. No recent surgery, recent travel, history of blood clot, hormone use. Patient has a prescription for lower extremity Doppler ultrasound that she received today. Patient is instructed to continue with her outpatient ultrasound. She is provided with a refill for her hypertension medication. Instructed to follow-up with her PCP. Follow-up with PCP. Report back to ER with any new or worsening symptoms. Discussed return parameters and answered all questions. Patient conveyed verbal understanding and agreed to the plan. I discussed this case in detail with my attending Dr. Hirsch Undiagnosed new problem with uncertain prognosis? @ -No Drug Therapy requiring intensive monitoring for toxicity (Heparin, Nitro, Insulin, Cardizem)? @ -No Were any procedures done? @ -No Diagnosis/symptom? @ -Lower extremity edema Acute, or Chronic, or Acute on Chronic? @ -Acute Uncomplicated (without systemic symptoms) or Complicated (systemic symptoms)? @ -Uncomplicated Side effects of treatment? @ -No Exacerbation, Progression, or Severe Exacerbation? @ -No Poses a threat to life or bodily function? How? (Chest pain, USA, MS, pneumonia, PE, COPD, DKA, ARF, appy, cholecystitis, CVA, Diverticulitis, Homicidal, Suicidal, threat to staff... and all critical care pts) @ -No Disposition Clinical Impression: Hypertension, Edema Disposition: HOME SELF-CARE Condition: Good Instructions (If sedation given, give patient instructions): Leg Edema (ED), Hypertension (ED) Additional Instructions: Follow-up with PCP. Report back to ER with any new or worsening symptoms. Schedule your outpatient ultrasound as instructed. Prescriptions: amLODIPine BES/OLMESARTAN MED [amLODIPine BES/OLMESARTAN MED 5-20 mg] 1 tab PO DAILY #30 tab Is patient prescribed a controlled substance at d/c from ED?: No Referrals: Jose Mckay MD [Primary Care Provider] - 1-2 days Time of Disposition: 02:37
== END 2023-01-18 02:48 | disposition home or self-care (01) ==
LOC: EC 01:52
DX: I10 Essential (primary) hypertension (principal); R60.0 Localized edema; Z79.899 Other long term (current) drug therapy; Z88.8 Allergy status to other drugs, medicaments and biological substances
CPT/HCPCS: 99283

== ENCOUNTER → 2023-01-18 | Outpatient (CLI) | payer BC ==
--- NOTE | 2023-01-18 09:39 | US ---
EXAMINATION TYPE: US venous doppler duplex LE BI DATE OF EXAM: 01/18/2023 9:14 AM COMPARISON: NONE CLINICAL INDICATION: Female, 57 years old with history of R600 LOCALIZED EDEMA; LOCALIZED EDEMA BILAT ANKLES, UNEXPLAINED BRUISE ANTERIOR LEFT ANKLE SIDE PERFORMED: Bilateral TECHNIQUE: The lower extremity deep venous system is examined utilizing real time linear array sonog clair with graded compression, doppler sonography and color-flow sonography. VESSELS IMAGED: Common Femoral Vein Deep Femoral Vein Greater Saphenous Vein * Femoral Vein Popliteal Vein Proximal Calf Veins (* superficial vessels) Right Leg: Negative for DVT Left Leg: Negative for DVT BILATERAL POSTERIOR KNEE COMPLEX SEPTATED FLUID COLLECTIONS RT: 3.6X1.4X1.8CM LT: 5.4X1.5X2.1CM AREA OF CONCERN SCANNED AT ANTERIOR LT ANKLE: HYPOECHOIC AREA MEASURES 1.2X0.2X0.6CM Grayscale, color doppler, spectral doppler imaging performed of the deep veins of the bilateral lower extremities. There is normal flow, compressibility, vascular waveforms. IMPRESSION: No ultrasound evidence for acute DVT in either lower extremity. Small to moderate-sized septated popliteal cysts are felt present bilaterally. Tiny focal subcutaneous hematoma anterior left ankle region is felt present towards the end of the study.
== END | disposition home or self-care (01) ==
LOC: LABWHC1 08:21
PROVIDERS: ATTEND Registered Nurse General Practice
DX: R60.0 Localized edema (principal)
CPT/HCPCS: 93970

== ENCOUNTER → 2023-01-18 | Outpatient (CLI) | payer BC ==
[2023-01-18 16:24] LABS: Basophils # (A) 0.07 X 10*3/uL (0.00-0.10); Basophils % (A) 1.5 %; Eosinophils # (A) 0.05 X 10*3/uL (0.04-0.35); HCT 41.9 % (37.2-46.3); Immature Grans, Automated 0.4 %; Lymphocytes % (A) 35.3 %; MCH 26.9 pg (27.0-32.0); MCV 86.7 fL (80.0-97.0); Mean Platelet Volume 10.2 fL (9.5-12.2); Monocytes # (A) 0.41 X 10*3/uL (0.20-1.00); Monocytes % (A) 8.5 %; NRBC Per 100 WBC 0 /100 WBCS (0.0-0.0); Neutrophils # (A) 2.57 X 10*3/uL (1.80-7.70); Neutrophils % (A) 53.3 %; Platelet Count 340 X 10*3/uL (140-440); RBC 4.83 X 10*6/uL (4.10-5.20); RDW 13.5 % (11.5-14.5); WBC 4.82 X 10*3/uL (4.50-10.00)
[2023-01-18 16:52] LABS: African American GFR (CKD) 94.2 (60.0-200.0); Albumin 4.4 g/dL (3.8-4.9); Albumin/Globulin Ratio 1.83 (1.60-3.17); Anion Gap 10.4 mmol/L (10.00-18.00); BUN/Creat Ratio 7.63 Ratio (12.00-20.00); Blood Urea Nitrogen 6.1 mg/dL (9.0-27.0); Calcium 9.7 mg/dL (8.7-10.3); Carbon Dioxide 26.6 mmol/L (20.0-27.5); Globulin 2.4 g/dL (1.6-3.3); Non-African American GFR(CKD) 81.3 (60.0-200.0); Potassium 4.1 mmol/L (3.5-5.5); Total Bilirubin 0.4 mg/dL (0.30-1.20); Total Protein 6.8 g/dL (6.2-8.2)
== END | disposition home or self-care (01) ==
LOC: LABWHC1 09:40
PROVIDERS: ATTEND Registered Nurse General Practice
DX: R60.0 Localized edema (principal)
CPT/HCPCS: 36415; 80053; 83880; 85025

== ENCOUNTER 2023-06-21 12:58 | Emergency (ER) | payer OTHER, BC ==
--- NOTE | 2023-06-21 13:35 | ED ---
Head Injury HPI - General Chief complaint: Head Injury Stated complaint: head injury ihs Time Seen by Provider: 06/21/23 13:23 Source: patient, RN notes reviewed Mode of arrival: ambulatory Limitations: no limitations - History of Present Illness Initial comments: Patient is a 57-year-old female presented ER with chief injury. Patient states she was on the playground this morning when she stood up and hit her head on one of the play equipment beams. Patient states she has been nausous ever since but denies any vomiting, loss of consciousness, visual changes. Denies blood thinner use. Patient has not taken any pain medication for the injury, Patient endorses associated neck pain denies arm pain or numbness/tingling. Denies any other complaints. - Related Data Home Medications Medication Instructions Recorded Confirmed Calcium Carbonate/Vitamin D3 1 tab PO DAILY 10/20/21 10/20/21 [Calcium 500 mg-Vit D3 5 mcg (200 Unit)] Cholecalciferol [Vitamin D3 (125 125 mcg PO DAILY 10/20/21 10/20/21 Mcg = 5000 Iu)] amLODIPine BES/OLMESARTAN MED 1 tab PO DAILY 10/20/21 10/20/21 [amLODIPine BES/OLMESARTAN MED 5-20 mg] Previous Rx's Medication Instructions Recorded Acetaminophen Tab [Tylenol] 650 mg PO Q6HR PRN tab 10/21/21 amLODIPine BES/OLMESARTAN MED 1 tab PO DAILY #30 tab 01/18/23 [amLODIPine BES/OLMESARTAN MED 5-20 mg] Allergies/Adverse reactions: Allergies Allergy/AdvReac Type Severity Reaction Status Date / Time naproxen AdvReac Rash/Hives Verified 06/21/23 13:14 Review of Systems ROS Statement: Those systems with pertinent positive or pertinent negative responses have been documented in the HPI. ROS Other: All systems not noted in ROS Statement are negative. Past Medical History Past Medical History: Hypertension History of Any Multi-Drug Resistant Organisms: None Reported Past Surgical History: Cholecystectomy, Orthopedic Surgery Additional Past Surgical History / Comment(s): knee Past Anesthesia/Blood Transfusion Reactions: No Reported Reaction Past Psychological History: No Psychological Hx Reported Smoking Status: Never smoker Past Alcohol Use History: None Reported Past Drug Use History: None Reported - Past Family History Mother Family Medical History: No Reported History General Exam Limitations: no limitations General appearance: alert, in no apparent distress Head exam: Present: other (2cm superifical laceration noted on top of head) Eye exam: Present: normal appearance, PERRL Pupils: Present: normal accommodation ENT exam: Present: normal exam, mucous membranes moist Neck exam: Present: normal inspection, tenderness (mild to trapezius muscle ), full ROM Respiratory exam: Present: normal lung sounds bilaterally. Absent: respiratory distress, wheezes, rales, rhonchi, stridor Cardiovascular Exam: Present: regular rate, normal rhythm, normal heart sounds. Absent: systolic murmur, diastolic murmur, rubs, gallop, clicks Neurological exam: Present: alert, oriented X3, CN II-XII intact Psychiatric exam: Present: normal affect, normal mood Skin exam: Present: warm, dry, intact, normal color. Absent: rash Course Vital Signs 06/21/23 13:10 Pulse Rate 83 Respiratory 18 Rate Blood Pressure 132/86 O2 Sat by Pulse 95 Oximetry Medical Decision Making - Medical Decision Making Was pt. sent in by a medical professional or institution (, PA, COAT FITTER, urgent care, hospital, or care home...) When possible be specific @ -No Did you speak to anyone other than the patient for history (EMS, parent, family, police, friend...)? What history was obtained from this source @ -No Did you review nursing and triage notes (agree or disagree)? Why? @ -I reviewed and agree with nursing and triage notes Were old charts reviewed (outside hosp., previous admission, EMS record, old EKG, old radiological studies, urgent care reports/EKG's, care home records)? Report findings @ -No old charts were reviewed Differential Diagnosis (chest pain, altered mental status, abdominal pain women, abdominal pain men, vaginal bleeding, weakness, fever, dyspnea, syncope, headache, dizziness, GI bleed, back pain, seizure, CVA, palpatations, mental health, musculoskeletal)? @ -Scalp hematoma, scalp laceration, intracranial hemorrhage, mass effect EKG interpreted by me (3pts min.). @ -None X-rays interpreted by me (1pt min.). @ -None done CT interpreted by me (1pt min.). @ -None done U/S interpreted by me (1pt. min.). @ -None done What testing was considered but not performed or refused? (CT, X-rays, U/S, labs)? Why? @ -Ct of brain was considered but not done according to [place] CT head rule of low suspicion What meds were considered but not given or refused? Why? @ -Patient was offered by mouth Zofran for nausea but declined. Did you discuss the management of the patient with other professionals (professionals i.e. , PA, COAT FITTER, lab, RT, psych nurse, addiction social worker, historic clothing and costume maker, teacher, navigating officer, case picker)? Give summary @ -No Was smoking cessation discussed for >3mins.? @ -No Was critical care preformed (if so, how long)? @ -No Were there social determinants of health that impacted care today? How? (Homelessness, low income, unemployed, alcoholism, drug addiction, transportation, low edu. Level, literacy, decrease access to med. care, snf, rehab)? @ -No Was there de-escalation of care discussed even if they declined (Discuss DNR or withdrawal of care, Hospice)? DNR status @ -No What co-morbidities impacted this encounter? (DM, HTN, Smoking, COPD, CAD, Cancer, CVA, ARF, Chemo, Hep., AIDS, mental health diagnosis, sleep apnea, morbid obesity)? @ -None Was patient admitted / discharged? Hospital course, mention meds given and route, prescriptions, significant lab abnormalities, going to OR and other pertinent info. @ -Discharged. According to the [place] head rule, a CT was deemed unnecessary. Exam was without concern for intracranial processes. Patient was offered Zofran prescription for nausea but declined. Patient will be discharged home in stable condition. Patient informed flag symptoms to return to ER. Patient expressed understanding. Undiagnosed new problem with uncertain prognosis? @ -No Drug Therapy requiring intensive monitoring for toxicity (Heparin, Nitro, Insulin, Cardizem)? @ -No Were any procedures done? @ -No Diagnosis/symptom? @ -Scalp laceration Acute, or Chronic, or Acute on Chronic? @ -Acute Uncomplicated (without systemic symptoms) or Complicated (systemic symptoms)? @ -Uncomplicated Side effects of treatment? @ -No Exacerbation, Progression, or Severe Exacerbation? @ -No Poses a threat to life or bodily function? How? (Chest pain, USA, CA, pneumonia, PE, COPD, DKA, ARF, appy, cholecystitis, CVA, Diverticulitis, Homicidal, Suicidal, threat to staff... and all critical care pts) @ -No Disposition Clinical Impression: Contusion of scalp Disposition: HOME SELF-CARE Condition: Stable Instructions (If sedation given, give patient instructions): Concussion (ED) Additional Instructions: Please return to the Emergency Department if symptoms worsen or any other concerns. Is patient prescribed a controlled substance at d/c from ED?: No Referrals: None,Stated [Primary Care Provider] - 1-2 days Time of Disposition: 13:55
[2023-06-21 13:45] VITALS: RESP 18
[2023-06-21 14:31] VITALS: BP 142/89; PULSE 74; TEMP 98
== END 2023-06-21 14:14 | disposition home or self-care (01) ==
LOC: EC 12:58
DX: S01.01XA Laceration without foreign body of scalp, initial encounter (principal); I10 Essential (primary) hypertension; Z88.6 Allergy status to analgesic agent; Z79.899 Other long term (current) drug therapy; W22.8XXA Striking against or struck by other objects, initial encounter; Y92.89 Other specified places as the place of occurrence of the external cause
CPT/HCPCS: 99283

== ENCOUNTER → 2023-06-24 | Outpatient (CLI) | payer OTHER ==
--- NOTE | 2023-06-24 14:02 | CT ---
EXAMINATION TYPE: CT brain wo con DATE OF EXAM: 06/24/2023 COMPARISON: 12/12/2013 HISTORY: headache CT DLP: 1098.8 mGycm Automated exposure control for dose reduction was used. FINDINGS: Cerebellar tonsils low-lying position of the level of foramen magnum. There is mild degenerative fletcher ge of the greater frontal lobe component. No acute hemorrhage or mass effect. No midline shift. Subcu taneous ossified or calcified density along the right parietal bone is stable from prior exam and chr onic. Calvarium grossly intact. Heterogeneous mineralization of the calvarium is stable. Orbits are symmetric. Sinuses are clear. IMPRESSION: 1. NO ACUTE HEMORRHAGE OR MASS EFFECT. NO MIDLINE SHIFT. 2. A LOW-LYING CEREBELLAR TONSILS.
== END | disposition home or self-care (01) ==
LOC: RADCTMAIN 13:27
PROVIDERS: ATTEND Emergency Medicine
DX: S00.83XA Contusion of other part of head, initial encounter (principal); Q04.8 Other specified congenital malformations of brain; X58.XXXA Exposure to other specified factors, initial encounter
CPT/HCPCS: 70450

== ENCOUNTER → 2023-08-06 | Outpatient (CLI) | payer BC ==
--- NOTE | 2023-08-07 08:42 | MM ---
Reason for Exam: Screening (asymptomatic). Last mammogram was performed 2 year(s) and 1 month(s) ago. Patient History: Menarche at age 13. First Full-Term at age 28. Postmenopausal. Patient has history of breast feeding. Risk Values: Lindsay 5 year model risk: 1.4%. NCI Lifetime model risk: 7.6%. Prior Study Comparison: 07/20/2011 Bilateral Screening Mammogram, [facility]. 12/02/2013 Bilateral Screening Mammogram, [facility]. 06/13/2018 Bilateral Screening Mammogram, [facility]. 06/26/2021 Bilateral Screening Mammogram, [facility]. Tissue Density: There are scattered fibroglandular densities. Findings: Analyzed By CAD. There is no suspicious group of microcalcifications or new suspicious mass in either breast. Overall Assessment: Negative, BI-RAD 1 Management: Screening Mammogram of both breasts in 1 year. . Patient should continue monthly self-breast exams. A clinical breast exam by your physician is recommended on an annual basis. This exam should not preclude additional follow-up of suspicious palpable abnormalities. Note on Lindsay scores and lifetime risk: 1. A Lindsay score greater than 3% is considered moderate risk. If this is the case, consider specialist referral to assess eligibility for a risk reducing agent. 2. If overall lifetime risk for the development of breast cancer is 20% or higher, the patient may qualify for future screening with alternating mammogram and breast MRI. Electronically signed and approved by: Claude Holt M.D. Radiologis
== END | disposition home or self-care (01) ==
LOC: RADMAMWWP 06:54
PROVIDERS: ATTEND Family Medicine
DX: Z12.31 Encounter for screening mammogram for malignant neoplasm of breast (principal); Z78.0 Asymptomatic menopausal state
CPT/HCPCS: 77063; 77067

== ENCOUNTER → 2024-02-03 | Outpatient (CLI) | payer BC ==
--- NOTE | 2024-02-03 17:36 | CT ---
EXAMINATION TYPE: CT left knee - [facility] Protocol CT DLP: 625 mGycm, Automated exposure control for dose reduction was used. DATE OF EXAM: 02/03/2024 4:43 PM COMPARISON: . None CLINICAL INDICATION:Female, 58 years old with history of M17.12 UNILATERAL PRIMARY OSTEOARTHRITIS, LE FT KNE; PHH, pre-op left total knee TECHNIQUE: Axial images were obtained of the CT left knee - RICK Protocol, Additional coronal and sag ittal reformatted images and soft tissue and bone window were obtained for review. 3-D reconstruction was created on a separate workstation. Contrast used: mL of , (None if empty) Oral contrast used: (None if empty) FINDINGS: The visualized portion of the hips demonstrate mild osteoarthrosis changes with osteophyte formation of the acetabulum. No acute intrapelvic process. The bony structures of the pelvis are inta ct. The visualized knee demonstrates osteophyte formation of the tibial plateau, the patella and femoral condyles. There is joint space narrowing and subchondral sclerosis. No evidence of fracture. Visualized ankle demonstrates multifocal osteoarthrosis changes with osteophyte formation and mild monserrat int space narrowing. No evidence of fractures. Scattered colonic diverticula. IMPRESSION: End-stage osteoarthrosis changes of the knee.
== END | disposition home or self-care (01) ==
LOC: RADCTMAIN 15:10
PROVIDERS: ATTEND Orthopaedic Surgery
DX: M17.12 Unilateral primary osteoarthritis, left knee (principal); Z01.818 Encounter for other preprocedural examination

== ENCOUNTER → 2024-03-13 | Outpatient (CLI) | payer OTHER ==
[2024-03-13 09:00] LABS: INR 0.9 (<1.2); Partial Thromboplastin Time 23.1 sec (22.0-30.0); Prothrombin Time 9.9 sec (10.0-12.5)
[2024-03-13 10:13] LABS: Basophils # (A) 0.09 X 10*3/uL (0.00-0.10); Basophils % (A) 1.7 %; Eosinophils # (A) 0.16 X 10*3/uL (0.04-0.35); Eosinophils % (A) 3.1 %; HGB 12.3 g/dL (12.0-15.0); Lymphocytes % (A) 38.5 %; MCH 27.5 pg (27.0-32.0); MCHC 31.5 g/dL (32.0-37.0); MCV 87.2 FL (80.0-97.0); Mean Platelet Volume 9.7 FL (9.5-12.2); Monocytes # (A) 0.42 X 10*3/uL (0.20-1.00); Monocytes % (A) 8.1 %; NRBC Per 100 WBC 0 X 10*3/uL (0.00-0.01); Neutrophils # (A) 2.51 X 10*3/uL (1.80-7.70); Neutrophils % (A) 48.2 %; Platelet Count 356 X 10*3/uL (140-440); RBC 4.47 X 10*6/uL (4.10-5.20); RDW 13.2 % (11.5-14.5)
[2024-03-13 10:43] LABS: ALT 18 U/L (8-44); AST 17 U/L (13-35); Albumin 4.3 g/dL (3.8-4.9); Albumin/Globulin Ratio 2.05 Ratio (1.60-3.17); Alkaline Phosphatase 74 U/L (41-126); BUN/Creat Ratio 10.22 Ratio (12.00-20.00); Blood Urea Nitrogen 9.2 mg/dL (9.0-27.0); C Reactive Protein <0.30 mg/dL (0.00-0.80); Calcium 9.4 mg/dL (8.7-10.3); Carbon Dioxide 27.1 mmol/L (21.6-31.8); Chloride 105 mmol/L (96-109); Chol/HDL Ratio 3.67 Ratio; Creatine Kinase 53 U/L (26-186); Globulin 2.1 g/dL (1.6-3.3); Glucose 100 mg/dL (70-110); LDL Cholesterol,Calculated 152.1 mg/dL (0.0-131.0); Potassium 4.8 mmol/L (3.5-5.5); Sodium 142 mmol/L (135-145); T4, Free (Free Thyroxine) 1.38 ng/dL (0.80-1.80); Total Bilirubin 0.2 mg/dL (0.3-1.2); Total Protein 6.4 g/dL (6.2-8.2)
[2024-03-13 15:30] LABS: Appearance,Urine Turbid (Clear); Bilirubin,Urine Negative (Negative); Blood,Urine Negative (Negative); Color,Urine Yellow (Yellow); Ketones,Urine Negative (Negative); Nitrite,Urine Negative (Negative); Specific Gravity,Urine 1.016 (1.001-1.030); Urobilinogen,Urine 0.2 E.U./DL
[2024-03-13 15:45] LABS: Bacteria,Urine None Seen (None Seen); Calcium Oxalate Crystals,Urine Present (None Seen)
== END | disposition home or self-care (01) ==
LOC: LABWHC1 07:04
PROVIDERS: ATTEND Family Medicine
DX: Z01.812 Encounter for preprocedural laboratory examination (principal); E78.5 Hyperlipidemia, unspecified; R03.0 Elevated blood-pressure reading, without diagnosis of hypertension
CPT/HCPCS: 80053; 80061; 81001; 82550; 82607; 83036; 84439; 84443; 85025; 85610; 85730; 86140; 87070

== ENCOUNTER → 2024-12-07 | Outpatient (CLI) | payer OTHER ==
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
== END | disposition home or self-care (01) ==
LOC: RADCTMAIN 14:45
PROVIDERS: ATTEND Emergency Medicine
DX: S00.83XA Contusion of other part of head, initial encounter (principal)
CPT/HCPCS: 70450